=== PATIENT | male | born 1995 | race African-American/Black ===

== ENCOUNTER 2018-06-20 16:49 | Emergency (ER) | payer SELFPAY ==
[~2018-06-20] VITALS: Ht 193 cm; Wt 97.5 kg
[2018-06-20 17:05] VITALS: BP 163/71
--- NOTE | 2018-06-20 17:27 | PHYS DOC ---
Adult General Chief Complaint Chief Complaint: SEXUALLY TRANSMITTED DISEASE HPI HPI Patient is a 23 year old male who presents with penile discharge and dysuria for 2 days. Patient is concerned about STDs, would like to be tested and treated. Review of Systems Review of Systems Constitutional: Denies fever or chills [] GI: Denies abdominal pain, nausea, vomiting, bloody stools or diarrhea [] : Reports penile discharge and dysuria Musculoskeletal: Denies back pain or joint pain [] Integument: Denies rash or skin lesions [] Neurologic: Denies headache, focal weakness or sensory changes [] All other systems were reviewed and found to be within normal limits, except as documented in this note. Current Medications Current Medications Current Medications Medications (Trade) Dose Ordered Sig/Brinda Start Time Stop Time Status Last Admin Dose Admin Azithromycin (Zithromax) 250 mg STK-MED ONCE 06/20/18 17:29 06/20/18 17:30 DC Ceftriaxone Sodium (Rocephin Im) 1 gm STK-MED ONCE 06/20/18 17:29 06/20/18 17:30 DC Metronidazole (Flagyl) 500 mg STK-MED ONCE 06/20/18 17:29 06/20/18 17:30 DC Allergies Allergies Allergies Coded Allergies Type Severity Reaction Last Updated Verified No Known Drug Allergies 06/20/18 No Physical Exam Physical Exam Constitutional: Well developed, well nourished, no acute distress, non-toxic appearance. [] Abdomen: Bowel sounds normal, soft, no tenderness, no masses, no pulsatile masses. [] Skin: Warm, dry, no erythema, no rash. [] Back: No tenderness, no CVA tenderness. [] Extremities: No tenderness, no cyanosis, no clubbing, ROM intact, no edema. [] Neurologic: Alert and oriented X 3, normal motor function, normal sensory function, no focal deficits noted. [] Psychologic: Affect normal, judgement normal, mood normal. [] Current Patient Data Vital Signs Vital Signs Date Time Temp Pulse Resp B/P (MAP) Pulse Ox O2 Delivery O2 Flow Rate FiO2 06/20/18 17:05 97.6 77 20 163/71 (101) 98 Room Air 97.6 Lab Values Laboratory Tests Test 06/20/18 17:06 Urine Collection Type Unknown Urine Color Yellow Urine Clarity Cloudy Urine pH 7.5 Urine Specific [place] 1.015 Urine Protein Negative mg/dL (NEG-TRACE) Urine Glucose (UA) Negative mg/dL (NEG) Urine Ketones (Stick) Negative mg/dL (NEG) Urine Blood Small (NEG) Urine Nitrite Negative (NEG) Urine Bilirubin Negative (NEG) Urine Urobilinogen Dipstick 0.2 mg/dL (0.2 mg/dL) Urine Leukocyte Esterase Large (NEG) Urine RBC 1-2 /HPF (0-2) Urine WBC Tntc /HPF (0-4) Urine Squamous Epithelial Cells None /LPF Urine Bacteria Few /HPF (0-FEW) Urine Mucus Slight /LPF EKG EKG [] Radiology/Procedures Radiology/Procedures [] Course & Med Decision Making Course & Med Decision Making Pertinent Labs and Imaging studies reviewed. (See chart for details) This is a 23-year-old male patient presenting to the ED today with STD concern. Patient was tested and treated. STD education provided. Staff Physician Addendum: I was working in the ER during the course of this patient's visit. I was available for consultation as needed, but I was not directly involved in the care of this patient. Dragon Disclaimer Dragon Disclaimer This electronic medical record was generated, in whole or in part, using a voice recognition dictation system. Departure Departure Impression: Primary Impression: Concern about STD in male without diagnosis Disposition: 01 HOME, SELF-CARE Condition: STABLE Referrals: UNKNOWN PCP NAME (PCP) Follow up with your own doctor or the health department as needed Patient Instructions: Sexually Transmitted Disease Additional Instructions: You were tested and treated for sexually transmitted diseases. Use protection at all times. Do not have sex for 2 weeks. Contact all your sex partners, let them know you were treated for STDs and ask them to seek treatment too. RYDER BLANCO APRN Jun 20, 2018 17:27 SHELLEY HITCHCOCK MD Jun 20, 2018 17:51
[2018-06-20] MEDS ORDERED: cefTRIAXone IM 1 GM VIAL IM ONE (17:29)
[2018-06-20] MEDS ORDERED: AZITHROMYCIN 250 MG TABLET. ONE (17:29)
[2018-06-20] MEDS ORDERED: metroNIDAZOLE 500 MG TABLET ONE (17:29)
[2018-06-20] MEDS ORDERED: metroNIDAZOLE 500 MG TABLET PO ONE (17:30)
[2018-06-20] MEDS ORDERED: cefTRIAXone IM 250 MG VIAL IM ONE (17:30)
[2018-06-20] MEDS ORDERED: AZITHROMYCIN 250 MG TABLET. PO ONE (17:30)
[2018-06-20 17:33] LABS: BILIRUBIN,URINE NEGATIVE (NEG); COLOR,URINE YELLOW; NITRITE,URINE NEGATIVE (NEG); PH,URINE 7.5; PROTEIN,URINE NEGATIVE (NEG-TRACE); UROBILINOGEN,URINE 0.2 mg/dL (0.2 mg/dL)
[2018-06-20 17:42] LABS: CLARITY,URINE CLOUDY
[2018-06-20 17:46] LABS: BACTERIA,URINE FEW /HPF (0-FEW); WBC,URINE TNTC /HPF (0-4)
== END 2018-06-20 17:55 | disposition home or self-care (01) ==
LOC: ER 16:49
DX: R36.9 Urethral discharge, unspecified (principal); R30.0 Dysuria; Z20.2 Contact with and (suspected) exposure to infections with a predominantly sexual mode of transmission
CPT/HCPCS: 81001; 87491; 87591; 96372; 99284; J0696; Q0144